=== PATIENT | female | born 1985 | race Caucasian/White ===

== ENCOUNTER 2018-07-11 12:07 | Emergency (ER) | payer OTHER | END 2018-07-11 14:27 | disposition left against medical advice (07) | LOC: M ED 12:07 | DX: Z53.29 Procedure and treatment not carried out because of patient's decision for other reasons (principal) ==

== ENCOUNTER → 2019-04-01 | Outpatient (CLI) | payer OTHER, SELFPAY | LOC: M OUTALCOH 09:06 | PROVIDERS: ATTEND Psychiatry & Neurology Psychiatry | DX: Z03.89 Encounter for observation for other suspected diseases and conditions ruled out (principal) ==

== ENCOUNTER 2019-05-03 16:00 | Outpatient (RCR) | payer MEDICAID, SELFPAY | END 2019-05-12 | LOC: M OUTALCOH 16:00 | PROVIDERS: ATTEND Psychiatry & Neurology Psychiatry | DX: Z03.89 Encounter for observation for other suspected diseases and conditions ruled out (principal); F17.200 Nicotine dependence, unspecified, uncomplicated ==

== ENCOUNTER 2019-06-10 16:47 | Emergency (ER) | payer MEDICAID ==
[~2019-06-10] VITALS: Ht 152.4 cm; Wt 43.6 kg
[2019-06-10 16:48] VITALS: BP 130/93
== END 2019-06-10 17:45 | disposition left against medical advice (07) ==
LOC: M ED 16:47
DX: Z53.29 Procedure and treatment not carried out because of patient's decision for other reasons (principal)

== ENCOUNTER 2019-12-25 15:30 | Inpatient (IN) | payer MEDICAID, OTHER ==
[~2019-12-25] VITALS: Ht 152.4 cm; Wt 44.8 kg
[2019-12-25 17:41] LABS: ALBUMIN 3.7 GM/DL (3.2-5.2); ALT/SGPT 1731 U/L (12-78); BILIRUBIN,DIRECT 2.5 MG/DL (0.0-0.2); BLOOD UREA NITROGEN 11 MG/DL (7-18); CALCIUM LEVEL 8.7 MG/DL (8.5-10.1); CARBON DIOXIDE LEVEL 22 MEQ/L (21-32); CHLORIDE LEVEL 105 MEQ/L (98-107); CREATININE FOR GFR 0.67 MG/DL (0.55-1.30); GLOMERULAR FILTRATION RATE > 60.0 (>60); GLUCOSE, FASTING 80 MG/DL (70-100); LIPASE 129 U/L (73-393); POTASSIUM SERUM 4.2 MEQ/L (3.5-5.1); SODIUM LEVEL 136 MEQ/L (136-145); TOTAL PROTEIN 7.3 GM/DL (6.4-8.2)
[2019-12-25 19:24] LABS: HEMATOCRIT 41.3 % (36.0-47.0); HEMOGLOBIN 13.8 g/dl (12.0-15.5); MEAN CORPUSCULAR HEMOGLOBIN 29.1 pg (27.0-33.0); MEAN CORPUSCULAR HGB CONC 33.4 g/dl (32.0-36.5); MEAN CORPUSCULAR VOLUME 87.1 fl (80.0-96.0); PLATELET COUNT, AUTOMATED 198 10^3/uL (150-450); RED BLOOD COUNT 4.74 10^6/uL (4.00-5.40); WHITE BLOOD COUNT 10.1 10^3/uL (4.0-10.0)
[2019-12-25 19:43] LABS: INR 1.06; PROTHROMBIN TIME 13.5 SECONDS (11.8-14.0)
[2019-12-25 19:44] LABS: PARTIAL THROMBOPLASTIN TIME 36.6 SECONDS (25.0-38.4)
[2019-12-25] MEDS ORDERED: KETOROLAC 30 MG/ML VIAL (J1885) IV ONE (20:15)
[2019-12-25] MEDS ORDERED: NS 1,000 ML IV ONE (20:15)
--- NOTE | 2019-12-25 21:42 | REPVR ---
PROCEDURE INFORMATION: Exam: US Abdomen Limited, Right Upper Quadrant Exam date and time: 12/25/2019 9:07 PM Age: 34 years old Clinical indication: Abdominal pain; Additional info: Ruq pain/elevated lfts TECHNIQUE: Imaging protocol: Real-time ultrasound of the abdomen with image documentation. Examination was focused on the right upper quadrant. COMPARISON: No relevant prior studies available. FINDINGS: Liver: Normal. No masses. Gallbladder: Normal. No gallstones. There is no gallbladder wall thickening. Common bile duct: Normal. No stones. No dilation. Pancreas: Visualized pancreas is unremarkable. Right kidney: Normal. No mass. No hydronephrosis. IMPRESSION: No acute findings. Electronically signed by: Arvind Beal On 12/25/2019 21:42:21 PM
[2019-12-25] MEDS ORDERED: ISOVUE-370 76% 100ML VIAL (Q9967) As Ordered ONE (22:40)
--- NOTE | 2019-12-25 23:20 | REPVR ---
PROCEDURE INFORMATION: Exam: CT Abdomen And Pelvis With Contrast Exam date and time: 12/25/2019 9:59 PM Age: 34 years old Clinical indication: Abdominal pain; Generalized; Additional info: Ruq pain/elevated lfts TECHNIQUE: Imaging protocol: Computed tomography of the abdomen and pelvis with intravenous contrast. Radiation optimization: All CT scans at this facility use at least one of these dose optimization techniques: automated exposure control; mA and/or kV adjustment per patient size (includes targeted exams where dose is matched to clinical indication); or iterative reconstruction. Contrast material: ISO; Contrast volume: 100 ml; Contrast route: AC; COMPARISON: US Abdomen 12/25/2019 9:06 PM FINDINGS: Liver: Liver is mildly enlarged. Mild periportal edema in the liver. Liver is otherwise unremarkable. No masses are seen. Gallbladder and bile ducts: Normal. No calcified stones. No ductal dilation. Pancreas: Normal. No ductal dilation. Spleen: Normal. No splenomegaly. Adrenals: Normal. No mass. Kidneys and ureters: Normal. No hydronephrosis. Stomach and bowel: Unremarkable. No obstruction. No mucosal thickening. Appendix: No evidence of appendicitis. Intraperitoneal space: Unremarkable. No free air. No significant fluid collection. Vasculature: Unremarkable. No abdominal aortic aneurysm. Lymph nodes: Unremarkable. No enlarged lymph nodes. Bladder: Unremarkable as visualized. Reproductive: Unremarkable as visualized. Bones/joints: Unremarkable. No acute fracture. Soft tissues: Unremarkable. IMPRESSION: 1. Hepatomegaly with mild periportal edema. No liver mass or biliary tract obstruction. 2. No signs of acute cholecystitis or other inflammatory process. Electronically signed by: Arvind Beal On 12/25/2019 23:20:11 PM
--- NOTE | 2019-12-26 00:56 | HPEPDOC ---
General Date of Admission 12/26/19 Date of Service: Dec 26, 2019 Chief Complaint The patient is a 34-year-old female admitted with a reason for visit of Abdominal Pain. Source: Patient Exam Limitations: No limitations Severity: Moderate Associated Symptoms: Malaise, Nausea, Weakness History of Present Illness Patient is 34 years old female with past medical history of hepatitis A presented hospital with upper quadrant abdominal pain and jaundice. Patient stated that she has been having right upper quadrant pain for 10 days, for past 2 days she developed jaundice, dark urine and whitish stool. Of note in summer of 2018 patient had hepatitis A. Patient stated that she never used IV drugs but he received a new tattoo 2 months ago. Also, she had unprotected sex around 3 months ago with her boyfriend who has hepatitis C. In emergency room CT of abdomen showed Hepatomegaly with mild periportal edema. No liver mass or biliary tract obstruction. No signs of acute cholecystitis or other inflammatory pr ocess. Also she was found to have bilirubin of 4, significant transaminitis. Home Medications No Active Prescriptions or Reported Meds Allergies Coded Allergies: latex (Verified Allergy, Intermediate, rash , 12/25/19) Past Medical History Medical History Hepatitis A Surgical History Tubal ligation Family History Mother had diabetes Social History * Smoker: current smoker, greater than 1 pack/day Alcohol: Denies Drugs: denies A-FIB/CHADSVASC A-FIB History Current/History of A-Fib/PAF?: No Current PO Anticoag Therapy: No Review of Systems Constitutional: Reports: Chills, Weakness Eyes: Denies: Pain, Vision change ENT: Denies: Head Aches Skin: Reports: Jaundice Pulmonary: Denies: Dyspnea Cardiovascular: Denies: Chest Pain, Palpitations Gastrointestinal: Reports: Nausea, Abdominal Pain Genitourinary: Denies: Dysuria, Frequency Hematologic: Denies: Bruising, Bleeding Excessively Endocrine: Denies: Polydipsia, Polyphagia Musculoskeletal: Denies: Neck Pain, Back Pain Neurological: Denies: Weakness Psych: Reports: Mood Normal Physical Examination General Exam: Positive: Alert, Cooperative Eye Exam: Positive: PERRLA, Conjunctiva & lids normal ENT Exam: Positive: Atraumatic Neck Exam: Positive: Supple; Negative: JVD Chest Exam: Positive: Clear to auscultation Heart Exam: Positive: Rate Normal Telemetry: Positive: No significant arrhythmia, Sinus Abdomen Exam: Positive: Normal bowel sounds, Soft, Tenderness (right upper quadrant), Hepatospenomegaly Extremity Exam: Negative: Clubbing, Cyanosis Skin Exam: Positive: Nl turgor and temperature Neuro Exam: Positive: Normal Gait, Strength at 5/5 X4 ext, Cranial Nerves 3-12 NL Psych Exam: Positive: Mental status NL Vital Signs Vital Signs Date Time Temp Pulse Resp B/P (MAP) Pulse Ox O2 Delivery O2 Flow Rate FiO2 12/25/19 20:05 12/25/19 15:31 98.3 84 18 98 Room Air Laboratory Data Labs 24H Laboratory Tests 2 12/25/19 15:49: Urine Color YELLOW, Urine Appearance CLEAR, Urine pH 6.0, Urine Specific [place] 1.006, Urine Protein NEGATIVE, Urine Glucose (UA) NEGATIVE, Urine Ketones NEGATIVE, Urine Blood NEGATIVE, Urine Nitrite NEGATIVE, Urine Bilirubin N EGATIVE, Urine Urobilinogen 0.2, Urine Leukocyte Esterase NEGATIVE, Urine WBC (Auto) 2, Urine RBC (Auto) 0, Urine Hyaline Casts (Auto) 0, Urine Bacteria (Auto) NEGATIVE, Urine Squamous Epithelial Cells 2, Urine Sperm (Auto) 12/25/19 16:56: Anion Gap 9, Glomerular Filtration Rate > 60.0, Calcium Level 8.7, Total Bilirubin 4.0H, Direct Bilirubin 2.5H, Aspartate Amino Transf (AST/SGOT) 816H, Alanine Aminotransferase (ALT/SGPT) 1731H, Alkaline Phosphatase 216H, Total Protein 7.3, Albumin 3.7, Albumin/Globulin Ratio 1.03, Lipase 129 12/25/19 18:48: Nucleated Red Blood Cells % (auto) 0.0, Prothrombin Time 13.5, Prothromb Time International Ratio 1.06, Activated Partial Thromboplast Time 36.6, Ammonia 28 CBC/BMP Laboratory Tests 12/25/19 16:56 12/25/19 18:48 Assessment/Plan Patient is 34 years old female with past medical history of hepatitis A presented hospital with upper quadrant abdominal pain and jaundice. Patient stated that she has been having right upper quadrant pain for 10 days, for past 2 days she developed jaundice, dark urine and whitish stool. Of note in summer of 2018 patient had hepatitis A. Patient stated that she never used IV drugs but he received a new tattoo 2 months ago. Also, she had unprotected sex around 3 months ago with her boyfriend who has hepatitis C. In emergency room CT of abdomen showed Hepatomegaly with mild periportal edema. No liver mass or biliary tract obstruction. No signs of acute cholecystitis or other inflammatory process. Also she was found to have bilirubin of 4, significant transaminitis. Problems (1) Elevated liver enzymes Status: Acute Problem Text: Most likely secondary to hepatitis Patient was exposed to hepatitis C, she had unprotected sex few months ago with ex-boyfriend who has hepatitis C CT abdomen and ultrasound of gallbladder negative for obstruction If patient has negative hepatitis panel she will need to have workup for autoimmune hepatitis IV fluid (2) Tobacco abuse Status: Chronic Problem Text: Negative patch Counseling Plan / VTE VTE Prophylaxis Ordered?: Yes JUSTIN GONZALEZ DO Dec 26, 2019 00:56
[2019-12-26 04:00] VITALS: BP 105/67
[2019-12-26] MEDS: NS 1,000 ML IV SCH ×2 (04:52→10:19)
[2019-12-26 06:00] VITALS: BP 110/68
[2019-12-26] MEDS ORDERED: MORPHINE 2 MG/ML 1ML VIAL (J2270) IV ONE (06:45)
[2019-12-26 08:57] LABS: HEMATOCRIT 38.1 % (36.0-47.0); HEMOGLOBIN 13.1 g/dl (12.0-15.5); MEAN CORPUSCULAR HEMOGLOBIN 29.6 pg (27.0-33.0); MEAN CORPUSCULAR HGB CONC 34.4 g/dl (32.0-36.5); PLATELET COUNT, AUTOMATED 180 10^3/uL (150-450); RED BLOOD COUNT 4.43 10^6/uL (4.00-5.40); WHITE BLOOD COUNT 4.5 10^3/uL (4.0-10.0)
[2019-12-26] MEDS ORDERED: HEPARIN SOD (PORCINE) 5000 UNITS/ML VIAL (J1644 PER 1000UNITS) SC SCH (09:00)
[2019-12-26 09:01] VITALS: BP 106/68
[2019-12-26 09:32] LABS: ALBUMIN 3.3 GM/DL (3.2-5.2); ALT/SGPT 1539 U/L (12-78); BILIRUBIN,TOTAL 3.3 MG/DL (0.2-1.0); BLOOD UREA NITROGEN 12 MG/DL (7-18); CALCIUM LEVEL 7.8 MG/DL (8.5-10.1); CARBON DIOXIDE LEVEL 22 MEQ/L (21-32); CHLORIDE LEVEL 111 MEQ/L (98-107); CREATININE FOR GFR 0.68 MG/DL (0.55-1.30); GLOMERULAR FILTRATION RATE > 60.0 (>60); GLUCOSE, FASTING 122 MG/DL (70-100); POTASSIUM SERUM 3.6 MEQ/L (3.5-5.1); SODIUM LEVEL 141 MEQ/L (136-145); TOTAL PROTEIN 6.1 GM/DL (6.4-8.2)
--- NOTE | 2019-12-26 12:34 | IPNPDOC ---
Text Note Date of Service The patient was seen on 12/26/19. NOTE S: Pt examined at bedside. States she is feeling much better from admission and almost back to her normal. Tolerating diet well. Only complaint is continued right upper quadrant pain. Denies any nausea, vomiting, shortness of breath, skin rashes or itching. No constipation or diarrhea. No blood loss. Is otherwise feeling well. PE: Vitals: see below General: NAD, A&Ox3, resting comfortably HEENT: NCAT, EOMI, anicteric sclera, MMM CV: RRR, no murmurs or clicks or rub. No edema RESP: CTAB, no w/r/r/ ABD: soft, ND. Benign. Tender to deep palpation RUQ. No masses or hernia or asci jovon. Normal active bowel sounds EXTREMITIES: 2+ radial pulses b/l, able to move all extremities NEURO: no focal deficits or acute changes A/P: This is a 34-year-old female with history of hepatitis A in 2019, and history of hepatitis C exposure from her ex-boyfriend, presenting for right upper quadrant pain, nausea, vomiting, jaundice with concerns of recurrent hepatitis. On admission, was found to have transaminitis and hepatitis panel pending. 1. Transaminitis Ultrasound and CT only reveal hepatomegaly with mild periportal edema. Given her history of hepatitis, concern for recurrent episode, although she denies any new exposures or travel. Hepatitis panel & HIV pending. Liver enzymes did not improve much today. Continue supportive care in the meanwhile. Will reassess tomorrow. She is otherwise clinically stable & compensated DVT ppx: heparin sc DISPO: pending clinicaly improvement. Likely dc home tomorrow. VS,Fishbone, I+O VS, Fishbone, I+O Laboratory Tests 12/25/19 16:56 12/25/19 18:48 12/26/19 08:37 Vital Signs Date Time Temp Pulse Resp B/P (MAP) Pulse Ox O2 Delivery O2 Flow Rate FiO2 12/26/19 09:01 97.7 76 16 106/68 (81) 98 Room Air I&O- Last 24 Hours up to 6 AM 12/26/19 06:00 Intake Total 120 ml Balance 120 ml GME ATTESTATION GME ATTESTATION My faculty preceptor for this patient encounter was physically present during the encounter and was fully available. All aspects of the patient interview, examination, medical decision making process, and medical care plan development were reviewed and approved by the faculty preceptor. The faculty preceptor is aware and concurs with the plan as stated in the body of this note and will attest to such by his/her cosignature. ATTENDING NOTE I, Du Mac, have independently examined this patient and performed my own physical exam, as well as reviewed the documentation and edited where necessary. I have discussed in detail with the resident / student the findings and plan of treatment as documented by the resident / student and edited their note. I agree with their findings and treatment plan and have edited their documentation. I will continue to follow the patient during this hospital stay. GAVINO ENRIQUEZ DO Dec 26, 2019 12:34 DU MAC MD Dec 30, 2019 16:46
[2019-12-26 15:12] VITALS: BP 117/77
--- NOTE | 2019-12-26 18:58 | DS.PDOC ---
Discharge Summary General Date of Admission Dec 26, 2019 at 00:36 Date of Discharge 12/26/19 Attending Physician: DU MAC MD Discharge Summary PROCEDURES PERFORMED DURING STAY: None. DISCHARGE DIAGNOSES: 1. Nausea, vomiting 2. Transaminitis, possibly Hep A HISTORY OF PRESENT ILLNESS: 34-year-old female presented to the ER for nausea/vomiting/jaundice/dark urine/RUQ pain for the past few days. She has a history of hepatitis A last year 2018 which presented with similar symptoms, she was concerned this was given hepatitis A. Denies any recent exposures or changes in meds or any recent travel. Of note, she does have hepatitis C exposure as well from her boyfriend IV drug user PCP. She herself denies any IV drug use ever. Denies any fever, chills, bowel changes. On admission, was noted to have significantly elevated transaminitis, imaging revealed hepatomegaly with mild periportal edema. HOSPITAL COURSE: She was started on IV fluids given supportive care. She felt significantly improved the next day and requested to leave. Is hemodynamically stable and was educated on discharge on hygiene precautions for Hepatitis, and to follow up with PCP and Infection Disease Dr. Mcdaniel. Tolerated diet well and ambulated without issues. Time of discharge, serology for hepatitis and HIV are still pending. Patient was informed to follow-up closely and return to ER for any emergency. DISCHARGE MEDICATIONS: Please see below. ALLERGIES: Please see below. PHYSICAL EXAMINATION ON DISCHARGE: Vitals: see below General: NAD, A&Ox3, resting comfortably HEENT: NCAT, EOMI, anicteric sclera, MMM CV: RRR, no murmurs or clicks or rub. No edema RESP: CTAB, no w/r/r/ ABD: soft, ND. Benign. Tender to deep palpation RUQ. No masses or hernia or ascites. Normal active bowel sounds EXTREMITIES: 2+ radial pulses b/l, able to move all extremities NEURO: no focal deficits or acute changes LABORATORY DATA: Please see below. IMAGING: * 12/25/2019 gallbladder ultrasound: No acute findings. * 12/25/2019 CT Abd/Pelvis: 1. Hepatomegaly with mild periportal edema. No lynda er mass or biliary tract obstruction. 2. No signs of acute cholecystitis or other inflammatory process. PROGNOSIS: good ACTIVITY: As tolerated. DIET: regular DISPOSITION: home DISCHARGE INSTRUCTIONS: 1. Follow-up with PCP within a week & with Dr. Mcdaniel infectious disease 2. Return to ER for emergency DISCHARGE CONDITION: Stable. TIME SPENT ON DISCHARGE: Greater than 35 minutes. Vital Signs/I&Os Vital Signs Date Time Temp Pulse Resp B/P (MAP) Pulse Ox O2 Delivery O2 Flow Rate FiO2 12/26/19 15:12 98.0 63 18 117/77 (90) 98 Room Air I&O- Last 24 Hours up to 6 AM 12/26/19 06:00 Intake Total 120 ml Balance 120 ml Laboratory Data Labs 24H Laboratory Tests 2 12/25/19 18:48: Nucleated Red Blood Cells % (auto) 0.0, Prothrombin Time 13.5, Prothromb Time International Ratio 1.06, Activated Partial Thromboplast Time 36.6, Ammonia 28 12/26/19 08:37: Nucleated Red Blood Cells % (auto) 0.0, Anion Gap 8, Glomerular Filtration Rate > 60.0, Calcium Level 7.8L, Total Bilirubin 3.3H, Aspartate Amino Transf (AST/SGOT) 849H, Alanine Aminotransferase (ALT/SGPT) 1539H, Alkaline Phosphatase 190H, Total Protein 6.1L, Albumin 3.3, Albumin/Globulin Ratio 1.18 CBC/BMP Laboratory Tests 12/25/19 18:48 12/26/19 08:37 Discharge Medications No Active Prescriptions or Reported Meds Allergies Coded Allergies: latex (Verified Allergy, Intermediate, rash , 12/25/19) GME ATTESTATION GME ATTESTATION My faculty preceptor for this patient encounter was physically present during the encounter and was fully available. All aspects of the patient interview, examination, medical decision making process, and medical care plan development were reviewed and approved by the faculty preceptor. The faculty preceptor is aware and concurs with the plan as stated in the body of this note and will att est to such by his/her cosignature. ATTENDING NOTE I, Du Mac, have independently examined this patient and performed my own physical exam, as well as reviewed the documentation and edited where necessary. I have discussed in detail with the resident / student the findings and plan of treatment as documented by the resident / student and edited their note. I agree with their findings and treatment plan and have edited their documentation. I will continue to follow the patient during this hospital stay. Time spent on discharge - 35 minutes GAVINO ENRIQUEZ DO Dec 26, 2019 18:58 DU MAC MD Dec 30, 2019 16:50
[2019-12-27 10:15] LABS: HEPATITIS B SURFACE ANTIGEN NEGATIVE (NEGATIVE)
[2019-12-27 10:43] LABS: HEPATITIS B CORE ANTIBODY IGM NEGATIVE (NEGATIVE); HIV 1&2 SCREEN CENTAUR NEGATIVE (NEGATIVE)
[2019-12-27 10:44] LABS: HEPATITIS A ANTIBODY IGM NEGATIVE (NEGATIVE)
[2019-12-27 10:48] LABS: HEPATITIS C VIRUS ABY INDEX > 11.0 INDEX (<0.8)
== END 2019-12-26 15:25 | disposition home or self-care (01) ==
LOC: M ED 15:30 → M ED INP 12-26 00:36 → ENRESERV 12-26 02:36 → M MS5PR 12-26 03:50
PROVIDERS: ADMIT Internal Medicine; ATTEND Internal Medicine
DX: B15.9 Hepatitis A without hepatic coma (principal); R17 Unspecified jaundice; R16.0 Hepatomegaly, not elsewhere classified; F17.200 Nicotine dependence, unspecified, uncomplicated; R11.2 Nausea with vomiting, unspecified; R10.11 Right upper quadrant pain; R74.0 Nonspecific elevation of levels of transaminase and lactic acid dehydrogenase [LDH]

== ENCOUNTER → 2020-01-06 | Outpatient (CLI) | payer OTHER, MEDICAID ==
[2020-01-06 19:07] LABS: ALBUMIN 4.1 GM/DL (3.2-5.2); ALT/SGPT 1372 U/L (12-78); BILIRUBIN,TOTAL 1.6 MG/DL (0.2-1.0); BLOOD UREA NITROGEN 13 MG/DL (7-18); CALCIUM LEVEL 9.1 MG/DL (8.5-10.1); CARBON DIOXIDE LEVEL 26 MEQ/L (21-32); CHLORIDE LEVEL 104 MEQ/L (98-107); CREATININE FOR GFR 0.71 MG/DL (0.55-1.30); FERRITIN 445 NG/ML (8-252); GLOMERULAR FILTRATION RATE > 60.0 (>60); GLUCOSE, FASTING 99 MG/DL (70-100); IRON (FE) 199 UG/DL (50-170); PERCENT SATURATION 44.9 % (13.2-45.0); POTASSIUM SERUM 4.1 MEQ/L (3.5-5.1); SODIUM LEVEL 137 MEQ/L (136-145); TOTAL IRON BINDING CAPACITY 443 UG/DL (250-450); TOTAL PROTEIN 8.1 GM/DL (6.4-8.2)
[2020-01-08 11:44] LABS: HEPATITIS B SURFACE ANTIBODY NEGATIVE (POSITIVE)
[2020-01-08 12:23] LABS: HEPATITIS A ANTIBODY IGM NEGATIVE (NEGATIVE)
== END ==
LOC: M PLALAB 12:53
PROVIDERS: ATTEND Internal Medicine Infectious Disease
DX: R76.8 Other specified abnormal immunological findings in serum (principal); B15.9 Hepatitis A without hepatic coma; R79.0 Abnormal level of blood mineral

== ENCOUNTER → 2020-02-04 | Outpatient (REF) | payer OTHER ==
[2020-02-04 12:43] LABS: ALBUMIN 4.2 GM/DL (3.2-5.2); BILIRUBIN,DIRECT 0.3 MG/DL (0.0-0.2); BILIRUBIN,TOTAL 0.9 MG/DL (0.2-1.0); PERCENT SATURATION 28.6 % (13.2-45.0); TOTAL PROTEIN 8.6 GM/DL (6.4-8.2)
[2020-02-06 08:06] LABS: HEPATITIS C QUANTITATION 8880 IU/mL (.)
== END ==
LOC: M SFHCPLAZ 10:35
PROVIDERS: ATTEND Internal Medicine Infectious Disease
DX: R76.8 Other specified abnormal immunological findings in serum (principal); R79.0 Abnormal level of blood mineral

== ENCOUNTER 2020-05-15 10:45 | Emergency (ER) | payer OTHER ==
[~2020-05-15] VITALS: Ht 152.4 cm; Wt 47.3 kg
[2020-05-15 10:46] VITALS: BP 109/64
[2020-05-15] MEDS ORDERED: TETRACAINE 0.5% OPHTH SOLN 4ML OS ONE (11:15)
[2020-05-15] MEDS ORDERED: FLUORESCEIN OPHTH 1 MG STRIP OS ONE (11:15)
[2020-05-15] MEDS ORDERED: OCUF0.25 OS (11:27)
== END 2020-05-15 11:30 | disposition home or self-care (01) ==
LOC: M ED 10:45
DX: S05.02XA Injury of conjunctiva and corneal abrasion without foreign body, left eye, initial encounter (principal); X58.XXXA Exposure to other specified factors, initial encounter; Y92.9 Unspecified place or not applicable; Y93.9 Activity, unspecified; Y99.9 Unspecified external cause status; F17.210 Nicotine dependence, cigarettes, uncomplicated; Z91.040 Latex allergy status

== ENCOUNTER → 2020-09-08 | Outpatient (REF) | payer OTHER ==
[~2020-09-08] MED LIST: OCUF0.25 OS
[2020-09-08 14:42] LABS: ALBUMIN 4.2 GM/DL (3.2-5.2); BILIRUBIN,DIRECT 0.1 MG/DL (0.0-0.2); BILIRUBIN,TOTAL 0.4 MG/DL (0.2-1.0); TOTAL PROTEIN 7.7 GM/DL (6.4-8.2)
[2020-09-09 23:11] LABS: HEPATITIS C QUANTITATION HCV Not Detected IU/mL (.)
== END ==
LOC: M SFHCPLAZ 10:35
PROVIDERS: ATTEND Internal Medicine Infectious Disease
DX: R76.8 Other specified abnormal immunological findings in serum (principal)

== ENCOUNTER → 2021-05-07 | Outpatient (CLI) | payer OTHER | LOC: M LABSMTC 14:19 | PROVIDERS: ATTEND Pediatrics | DX: Z11.52 Encounter for screening for COVID-19 (principal) ==